=== PATIENT | female | born 2000 | race Caucasian/White ===

== ENCOUNTER 2024-04-01 21:17 | Emergency (ER) | payer OTHER ==
[~2024-04-01] VITALS: Ht 160 cm; Wt 107.0 kg
[2024-04-01 21:20] VITALS: PULSE 80; RESP 19; TEMP 97.7; O2SAT 98
[2024-04-01] MEDS ORDERED: AZITHROMYCIN250 MG PO (21:22)
== END 2024-04-01 21:25 | disposition home or self-care (01) ==
LOC: FSED 21:20
DX: H92.02 Otalgia, left ear (principal); J06.9 Acute upper respiratory infection, unspecified; R05.9 Cough, unspecified
CPT/HCPCS: 99283